=== PATIENT | male | born 1950 | race Caucasian/White ===

== ENCOUNTER 2016-09-26 04:28 | Emergency (ER) | payer MEDICARE, OTHER ==
[~2016-09-26] VITALS: Ht 177.8 cm; Wt 70.0 kg
[2016-09-26] MEDS ORDERED: AMLO5TAB2 PO (04:39)
[2016-09-26 06:16] VITALS: BP 140/75
== END 2016-09-26 08:56 | disposition home or self-care (01) ==
LOC: ED 06:22
DX: M51.26 Other intervertebral disc displacement, lumbar region (principal); R53.1 Weakness; I10 Essential (primary) hypertension; F17.200 Nicotine dependence, unspecified, uncomplicated
CPT/HCPCS: 72148; 99284

== ENCOUNTER → 2016-11-26 | Outpatient (CLI) | payer MEDICARE, OTHER ==
[~2016-11-26] MED LIST: AMLO5TAB2 PO; ASPI-496 PO; ATEN25TA PO; MULT-224 PO
[2016-11-26 11:37] LABS: HEMATOCRIT 51.1 % (39.2-51.8); HEMOGLOBIN 16.9 g/dL (13.7-18.0); WHITE BLOOD COUNT 6.9 x10^3/uL (3.4-10)
[2016-11-26 12:31] LABS: BLOOD UREA NITROGEN 7 mg/dL (7-18)
== END | disposition home or self-care (01) ==
LOC: STAR 10:16
PROVIDERS: ATTEND Neurological Surgery
DX: Z01.818 Encounter for other preprocedural examination (principal); M48.02 Spinal stenosis, cervical region; R79.1 Abnormal coagulation profile
CPT/HCPCS: 36415; 71020; 80048; 85025; 85610; 85730; 93005

== ENCOUNTER 2016-12-03 05:35 | Inpatient (IN) | payer MEDICARE, OTHER ==
[~2016-12-03] VITALS: Ht 177.8 cm; Wt 68.2 kg
[2016-12-03] MEDS ORDERED: LACTATED RINGERS 1,000 ML IV SCH (06:19)
[2016-12-03] MEDS ORDERED: THROMBIN 5,000 UNIT VIAL TP ONE (06:43)
[2016-12-03] MEDS ORDERED: BUPIVACAINE/PF 0.5% ONE (06:43)
[2016-12-03] MEDS ORDERED: BACITRACIN 50,000 UNIT ONE (06:44)
[2016-12-03] MEDS ORDERED: EPINEPHRINE 1 MG/ML, 1ML ONE (06:44)
[2016-12-03 06:45] VITALS: BP 161/72
[2016-12-03] MEDS ORDERED: PROPOFOL 10 MG/ML, 20ML ONE (06:54)
[2016-12-03] MEDS ORDERED: ONDANSETRON 2MG/ML, 2ML ONE (06:54)
[2016-12-03] MEDS ORDERED: DEXAMETHASONE 4 MG/ML, 1ML ONE (06:54)
[2016-12-03] MEDS ORDERED: CEFAZOLIN 1,000 MG ONE (06:54)
[2016-12-03] MEDS ORDERED: SUCCINYLCHOLINE 20 MG/ML, 10ML ONE (06:55)
[2016-12-03] MEDS ORDERED: LIDOCAINE GEL 2%, 5ML ONE (06:55)
[2016-12-03] MEDS ORDERED: FENTANYL PF 500 MCG/10ML ONE (06:56)
[2016-12-03] MEDS ORDERED: MIDAZOLAM 1 MG/ML, 2ML ONE (06:56)
[2016-12-03] MEDS ORDERED: LIDOCAINE-MPF 2% ,5ML ONE ×3 (07:00→08:44)
[2016-12-03] MEDS ORDERED: PROMETHAZINE 25 MG/ML, 1ML IV PRN (08:30)
[2016-12-03] MEDS ORDERED: MIDAZOLAM 1 MG/ML, 2ML IV PRN (08:30)
[2016-12-03] MEDS ORDERED: DIAZEPAM 5 MG/ML, 2ML IVPush PRN (08:30)
[2016-12-03] MEDS ORDERED: hydrALAzine 20 MG/ML, 1ML IV PRN (08:30)
[2016-12-03] MEDS ORDERED: MEPERIDINE/PF 25MG/0.5ML IVPush PRN (08:30)
[2016-12-03] MEDS ORDERED: HYDROcodone/APAP 7.5-325MG/15ML UDC PO PRN (08:30)
[2016-12-03] MEDS ORDERED: ACETAMINOPHEN 325 MG TABLET PO PRN (08:30)
[2016-12-03] MEDS ORDERED: HYDROmorphone 1 MG/ML, 1ML IV PRN (08:30)
[2016-12-03] MEDS ORDERED: ONDANSETRON 2MG/ML, 2ML IVPush PRN (08:30)
[2016-12-03] MEDS ORDERED: FENTANYL PF 100 MCG/2ML IV PRN (08:30)
[2016-12-03] MEDS ORDERED: LABETALOL 5MG/ML, 20ML IV PRN (08:30)
[2016-12-03] MEDS ORDERED: METOCLOPRAMIDE 5 MG/ML, 2ML IV PRN (08:30)
[2016-12-03] MEDS ORDERED: LORazepam 2 MG/ML, 1ML IVPush PRN (08:30)
[2016-12-03] MEDS ORDERED: ALBUTEROL/IPRATROPIUM 2.5MG/0.5MG, 3 ML NPPB PRN (08:30)
[2016-12-03] MEDS ORDERED: PHENYLEPHRINE 10 MG/ML ONE (08:41)
[2016-12-03] MEDS ORDERED: EPHEDRINE 50 MG/ML, 1ML ONE (08:41)
[2016-12-03] MEDS ORDERED: FENTANYL PF 100 MCG/2ML ONE (09:46)
[2016-12-03] MEDS ORDERED: HYDROcodone/APAP 7.5-325MG/15ML UDC ONE (09:46)
[2016-12-03] MEDS ORDERED: METHOCARBAMOL 750 MG TABLET ONE (09:59)
[2016-12-03] MEDS ORDERED: METHOCARBAMOL 750 MG TABLET PO ONE (10:30)
[2016-12-03] MEDS ORDERED: METHOCARBAMOL 750 MG TABLET PO PRN (10:30)
[2016-12-03] MEDS ORDERED: HYDROmorphone 2 MG/ML, 1ML IM PRN (13:00)
[2016-12-03] MEDS ORDERED: MAGNESIUM HYDROXIDE 8%, 30ML UDC PO PRN (13:00)
[2016-12-03] MEDS ORDERED: HYDROmorphone 2MG TABLET PO PRN (13:00)
[2016-12-03] MEDS ORDERED: DIPHENHYDRAMINE 50 MG/ML, 1ML IM PRN (13:00)
[2016-12-03] MEDS ORDERED: DIAZEPAM 5 MG TABLET PO PRN (13:00)
[2016-12-03] MEDS ORDERED: OXYcodone/APAP 5/325MG TABLET PO PRN (13:00)
[2016-12-03] MEDS ORDERED: DIAZEPAM 5 MG/ML, 2ML IV PRN (13:00)
[2016-12-03] MEDS ORDERED: DIPHENHYDRAMINE 50 MG/ML, 1ML IVPush PRN (13:00)
[2016-12-03] MEDS ORDERED: PROMETHAZINE 25 MG/ML, 1ML IM PRN (13:00)
[2016-12-03] MEDS ORDERED: BISACODYL 10 MG SUPP PR PRN (13:00)
[2016-12-03] MEDS ORDERED: ONDANSETRON 2MG/ML, 2ML IV PRN (13:00)
[2016-12-03] MEDS: NS + 20MEQ KCL 1,000 ML IV SCH (13:24)
[2016-12-03] MEDS: METHOCARBAMOL 750 MG TABLET PO PRN ×2 (13:24→21:23)
[2016-12-03 13:36] VITALS: BP 138/81
[2016-12-03] MEDS: CEFAZOLIN PMX 1GM/50ML 50 ML IVPB SCH ×2 (14:25→22:46)
[2016-12-03] MEDS ORDERED: DIAZEPAM 5 MG/ML, 10ML VIAL IV PRN (16:00)
[2016-12-03 19:46] VITALS: BP 143/70
[2016-12-03] MEDS ORDERED: ZOLPIDEM 5MG TABLET PO PRN (21:00)
[2016-12-03] MEDS: HYDROcodone/APAP 5/325 TABLET PO PRN (23:09)
[2016-12-03 23:43] VITALS: BP 124/70
[2016-12-04 03:40] VITALS: BP 125/73
[2016-12-04] MEDS: HYDROcodone/APAP 5/325 TABLET PO PRN ×2 (04:07→08:10)
[2016-12-04] MEDS: NS + 20MEQ KCL 1,000 ML IV SCH ×3 (05:25→23:19)
[2016-12-04] MEDS: ATENOLOL 25 MG TABLET PO SCH (05:29)
[2016-12-04] MEDS: METHOCARBAMOL 750 MG TABLET PO PRN (05:29)
[2016-12-04 06:56] VITALS: BP 154/74
[2016-12-04] MEDS: MULTIVITAMINS/MINERALS TABLET PO SCH (08:09)
[2016-12-04] MEDS: SENNA/DOCUSATE TABLET PO SCH (08:09)
[2016-12-04 09:54] LABS: BLOOD UREA NITROGEN 12 mg/dL (7-18)
[2016-12-04 09:59] LABS: HEMATOCRIT 36.3 % (39.2-51.8); HEMOGLOBIN 12.1 g/dL (13.7-18.0); WHITE BLOOD COUNT 12.6 x10^3/uL (3.4-10)
[2016-12-04] MEDS: CYCLOBENZAPRINE 10 MG TABLET PO SCH ×3 (10:20→20:54)
[2016-12-04] MEDS: HYDROcodone/APAP 10/325 MG TABLET PO PRN ×3 (12:22→22:18)
[2016-12-04] MEDS: DIPHENHYDRAMINE 50 MG CAPSULE PO PRN ×2 (12:59→22:18)
[2016-12-04 14:30] VITALS: BP 146/82
[2016-12-04 19:21] VITALS: BP 131/77
[2016-12-05 01:33] VITALS: BP 161/83
[2016-12-05] MEDS ORDERED: HYDR-3307 PO (02:12)
[2016-12-05] MEDS ORDERED: CYCL5TAB PO (02:14)
[2016-12-05] MEDS: HYDROcodone/APAP 10/325 MG TABLET PO PRN ×4 (02:29→14:10)
[2016-12-05] MEDS: ATENOLOL 25 MG TABLET PO SCH (05:47)
[2016-12-05 06:43] VITALS: BP 138/74
[2016-12-05] MEDS ORDERED: medrol (09:49)
[2016-12-05] MEDS ORDERED: medrol dose pack (09:54)
[2016-12-05] MEDS: CYCLOBENZAPRINE 10 MG TABLET PO SCH (11:06)
[2016-12-05] MEDS: SENNA/DOCUSATE TABLET PO SCH (11:06)
[2016-12-05] MEDS: MULTIVITAMINS/MINERALS TABLET PO SCH (11:07)
[2016-12-05 12:57] VITALS: BP 122/72
== END 2016-12-05 14:20 | disposition home or self-care (01) | DRG 472 ==
LOC: ORIP 05:35 → 4NOR 11:24
PROVIDERS: ADMIT Neurological Surgery; ATTEND Neurological Surgery
PROC: 0RG1071 Fusion of Cervical Vertebral Joint with Autologous Tissue Substitute, Posterior Approach, Posterior Column, Open Approach (ICD-10-PCS; 2016-12-03)
PROC: 01N10ZZ Release Cervical Nerve, Open Approach (ICD-10-PCS; principal; 2016-12-03 07:30)
DX: M48.02 Spinal stenosis, cervical region (principal); M47.12 Other spondylosis with myelopathy, cervical region; Z87.891 Personal history of nicotine dependence; Z88.8 Allergy status to other drugs, medicaments and biological substances
CPT/HCPCS: 36415; 72040; 80048; 85025; 95938; 95941; C1713; J0171; J0690; J1100; J2250; J2270; J2405; J2704; J3010; J3360; J3480; J3490; J0330; J1200; J2370; J7120

== ENCOUNTER 2019-03-20 14:25 | Outpatient (CLI) | payer MEDICARE, OTHER ==
[~2019-03-20 14:25] MED LIST changes: +AMLO-150 PO; -AMLO5TAB2 PO; +CYCL5TAB PO; +HYDR-3246 PO; -MULT-224 PO; +MULT-642 PO; +medrol; +medrol dose pack
[2019-03-20] MEDS ORDERED: TIOT18CA INH (15:05)
[2019-03-20] MEDS ORDERED: ALBU18HF INH (15:05)
[2019-03-20 15:33] LABS: BASOPHILS # (AUTO) 0.07 x10^3/uL (0-0.1); BASOPHILS % (AUTO) 1 % (0-1); EOSINOPHILS # (AUTO) 1.17 x10^3/uL (0-0.4); EOSINOPHILS % (AUTO) 11 % (1-7); LYMPHOCYTES # (AUTO) 1.82 x10^3/uL (1-3.4); LYMPHOCYTES % (AUTO) 17 % (22-44); MD NO; MEAN CORPUSCULAR HEMOGLOBIN 30.4 pg (27.5-34.5); MEAN CORPUSCULAR HGB CONC 32.4 g/dL (33.2-36.2); MEAN CORPUSCULAR VOLUME 93.8 fL (81-97); MONOCYTES # (AUTO) 0.86 x10^3/uL (0.2-0.8); MONOCYTES % (AUTO) 8 % (2-9); NEUTROPHILS # (AUTO) 6.95 x10^3/uL (1.8-6.8); NEUTROPHILS % (AUTO) 64 % (42-75); PLATELET COUNT 337 x10^3/uL (130-400); RED BLOOD COUNT 4.58 x10^6/uL (4.38-5.82); RED CELL DISTRIBUTION WIDTH 14.7 % (9.4-14.8)
[2019-03-20 15:43] LABS: INTERNATIONAL NORMALIZED RATIO 0.91 (0.93-1.1); PROTHROMBIN TIME 9.6 Seconds (9.6-11.5)
[2019-03-20 15:45] LABS: ALANINE AMINOTRANSFERASE 27 U/L (12-78); ALBUMIN 3.9 g/dL (3.4-5.0); ANION GAP 6 mmol/L (5-15); CALCIUM 8.8 mg/dL (8.5-10.1); CHLORIDE 101 mmol/L (98-107)
[2019-03-20 15:47] LABS: ALKALINE PHOSPHATASE 74 U/L (45-117); BILIRUBIN,TOTAL 0.4 mg/dL (0.2-1.0); TOTAL PROTEIN 7.7 g/dL (6.4-8.2)
== END 2019-03-20 23:59 | disposition home or self-care (01) ==
LOC: STAR 14:25
PROVIDERS: ATTEND Neurological Surgery
DX: Z01.818 Encounter for other preprocedural examination (principal); M48.062 Spinal stenosis, lumbar region with neurogenic claudication
CPT/HCPCS: 36415; 71046; 80053; 85025; 85610; 85730; 93005

== ENCOUNTER 2019-03-28 07:18 | Day surgery (SDC) | payer MEDICARE, OTHER ==
[2019-03-20 15:06] VITALS: BP 156/77
[~2019-03-28] VITALS: Ht 177.8 cm; Wt 74.7 kg
[~2019-03-28 07:18] MED LIST changes: +ALBU18HF INH; +BACITRACIN 50,000 UNIT ONE; +BUPIVACAINE/PF 0.5% ONE; +EPINEPHRINE 1 MG/ML, 1ML ONE; -HYDR-3246 PO; +HYDR-36 PO; +THROMBIN 5,000 UNIT VIAL TP ONE; +TIOT18CA INH
[2019-03-28] MEDS ORDERED: LACTATED RINGERS 1,000 ML IV SCH (08:02)
[2019-03-28] MEDS ORDERED: MIDAZOLAM 1 MG/ML, 2ML ONE (09:14)
[2019-03-28] MEDS ORDERED: FENTANYL PF 250 MCG/5ML ONE (09:14)
[2019-03-28] MEDS ORDERED: SUGAMMADEX 200 MG/2 ML IVPush ONE (09:23)
[2019-03-28] MEDS ORDERED: ONDANSETRON 2MG/ML, 2ML ONE (10:07)
[2019-03-28] MEDS ORDERED: PHENYLEPHRINE 10 MG/ML ONE (10:07)
[2019-03-28] MEDS ORDERED: CEFAZOLIN 1,000 MG ONE (10:07)
[2019-03-28] MEDS ORDERED: DEXAMETHASONE 4 MG/ML, 1ML ONE (10:07)
[2019-03-28] MEDS ORDERED: PROPOFOL 10 MG/ML, 20ML ONE (10:07)
[2019-03-28] MEDS ORDERED: ROCURONIUM 10 MG/ML,10ML ONE (10:07)
[2019-03-28] MEDS ORDERED: METHOCARBAMOL 1,000 MG in DEXTROSE 5% 100 ML IV PRN (11:30)
[2019-03-28] MEDS ORDERED: HYDROcodone/APAP 7.5-325MG/15ML UDC PO PRN (11:30)
[2019-03-28] MEDS ORDERED: ALBUTEROL/IPRATROPIUM 2.5MG/0.5MG, 3 ML NPPB PRN (11:30)
[2019-03-28] MEDS ORDERED: FENTANYL PF 100 MCG/2ML IV PRN (11:30)
[2019-03-28] MEDS ORDERED: hydrALAzine 20 MG/ML, 1ML IV PRN (11:30)
[2019-03-28] MEDS ORDERED: HYDROmorphone 2 MG/ML, 1ML IVPush PRN (11:30)
[2019-03-28] MEDS ORDERED: HALOPERIDOL 5 MG/ML IV PRN (11:30)
[2019-03-28] MEDS ORDERED: ACETAMINOPHEN 650 MG/20.3 ML UDC PO PRN (11:30)
[2019-03-28] MEDS ORDERED: MEPERIDINE/PF 25MG/ML,1ML IVPush PRN (11:30)
[2019-03-28] MEDS ORDERED: ACETAMINOPHEN 650 MG/20.3 ML UDC ONE (11:34)
[2019-03-28] MEDS ORDERED: HYDROcodone/APAP 7.5-325MG/15ML UDC ONE (11:58)
[2019-03-28] MEDS ORDERED: DIAZEPAM 5 MG/ML, 2ML IV PRN (14:00)
[2019-03-28] MEDS ORDERED: DIAZEPAM 5 MG TABLET ONE (14:00)
[2019-03-28] MEDS ORDERED: DIAZEPAM 5 MG TABLET PO PRN (14:00)
[2019-03-28] MEDS ORDERED: HYDROcodone/APAP 5/325 TABLET ONE (15:55)
[2019-03-28] MEDS ORDERED: HYDROcodone/APAP 5/325 TABLET PO PRN (16:00)
== END 2019-03-28 16:10 | disposition home or self-care (01) ==
LOC: OUT 07:18
PROVIDERS: ATTEND Neurological Surgery
DX: M54.16 Radiculopathy, lumbar region (principal); M48.061 Spinal stenosis, lumbar region without neurogenic claudication; I10 Essential (primary) hypertension; F15.90 Other stimulant use, unspecified, uncomplicated; Z98.42 Cataract extraction status, left eye; Z98.41 Cataract extraction status, right eye; Z85.828 Personal history of other malignant neoplasm of skin; Z98.890 Other specified postprocedural states; Z72.89 Other problems related to lifestyle; Z87.891 Personal history of nicotine dependence; Z96.1 Presence of intraocular lens
CPT/HCPCS: 63047; 63048; 72100; J0171; J0690; J1100; J2250; J2370; J2405; J2704; J2800; J3010; J7120